=== PATIENT | female | born 1980 | race Caucasian/White ===

== ENCOUNTER → 2017-12-20 20:59 | Outpatient (CLI) | payer MEDICAID ==
[2015-02-08 13:16] VITALS: BMI 38.3
[~2017-12-20 20:59] MED LIST: AMOXICILLIN500 M1 PO; ELIQUIS5 MG PO; HYDROCODONE-APA1 TAB PO; IBUPROFEN600 MG PO; LOVENOX80 MG/0.8 SC; PHENERGAN6.25 MG/5 PO; PRENATAL COMPLE1 TAB PO; PROTONIX40 MG PO
== END | disposition home or self-care (01) ==
LOC: D.MAMMO 11:45
DX: R59.0 Localized enlarged lymph nodes (principal)

== ENCOUNTER → 2018-01-04 08:29 | Outpatient (CLI) | payer MEDICAID ==
[2015-02-08 13:16] VITALS: BMI 38.3
== END | disposition home or self-care (01) ==
LOC: D.MAMMO 08:00 → D.US 08:00
DX: R92.8 Other abnormal and inconclusive findings on diagnostic imaging of breast (principal)

== ENCOUNTER 2020-06-16 18:30 | Outpatient (CLI) | payer MEDICAID ==
[2015-02-08 13:16] VITALS: BMI 38.3
== END 2020-06-16 23:59 | disposition home or self-care (01) ==
LOC: D.MAMMO 18:30
PROVIDERS: ATTEND Family Medicine
DX: Z12.31 Encounter for screening mammogram for malignant neoplasm of breast (principal)